=== PATIENT | female | born 1935 | race Caucasian/White ===

== ENCOUNTER 2017-05-11 07:31 | Inpatient (IN) | payer MEDICARE ==
[2017-05-11] VITALS (9 sets, daily range): BP systolic 104–147; BP diastolic 50–64
[~2017-05-11] VITALS: Ht 160 cm; Wt 58.1 kg
[~2017-05-11 07:31] MED LIST: ACETAMIN325 MG PO; AMLODIPINE5 MG OR; AMLODIPINE5 MG PO; AMOXICILLIN250 M1 PO; BONIVA150 MG OR; BONIVA150 MG PO; CEPHALEXIN500 MG PO; CHERATUSSIN OR; CIPRO500 MG OR; GABAPENTIN100 MG PO; HUMULIN 70/30 SC; HYDROCHLOROT25 MG OR; HYDROCHLOROT25 MG PO; LANTUS SC; LEVOTHYROXIN75 MC1 OR; LEVOTHYROXIN75 MC1 PO; LISINOPRIL10 MG PO; LISINOPRIL5 MG OR; LOPRESSOR 550 MG/TAB PO; LOPRESSOR50 MG PO; LORTAB 5/3255 MG PO; METFORMIN1000 MG PO; METFORMIN500 M1 OR; METFORMIN500 MG PO; METOPROL TAR100 M1 OR; MILK OF MAG2 OR; NEURONTIN100 MG PO; PEPCID20 MG PO; PRAVASTATIN20 MG OR; PRAVASTATIN20 MG PO; ROBITUSSIN AC10 ML PO; VITAMIN D2000 UNI2 PO; ZESTRIL OR; ZESTRIL5 MG PO; ZYRTEC10 MG PO; [UNRECOGNIZED DRUG - REMARK] OR
[2017-05-11] MEDS ORDERED: AMLODIPINE5 MG PO (07:55)
[2017-05-11] MEDS ORDERED: LEVOTHYROXIN100 MCG PO (07:56)
[2017-05-11] MEDS ORDERED: METOPROL TAR25 MG PO (07:57)
[2017-05-11] MEDS ORDERED: METFORMIN500 MG PO (07:57)
[2017-05-11] MEDS ORDERED: VITAMIN D2000 UNI2 PO (07:58)
[2017-05-11] MEDS ORDERED: TYLENOL 500MG TAB PO (08:01)
[2017-05-11 08:04] LABS: HEMATOCRIT 35.6 % (37.0-47.0); IMMATURE GRANULOCYTES 1.5 % (0.0-1.0); MEAN CELL VOLUME 89.2 fL CALC (80.0-100.0); MEAN CORPUSCULAR HGB 30.1 pG CALC (26.0-32.0); MEAN CORPUSCULAR HGB CONC 33.7 g/L CALC (32.0-36.0); NEUT# 11.49 thou/uL (2.00-7.15); RED BLOOD COUNT 3.99 mill/uL (4.20-5.60); RED CELL DISTRI WIDTH 14.3 % (11.5-15.5)
[2017-05-11 08:16] LABS: ALBUMIN 4.2 g/dL (3.2-5.0); ALKALINE PHOSPHATASE 68 u/l (38-126); ANION GAP 19 (6-22 (CALC)); BILIRUBIN, TOTAL 0.5 mg/dL (0.0-1.4); BUN 17 mg/dL (8-23); BUN/CREATININE RATIO 21 (12-20 (CALC)); CALCIUM 9.4 mg/dL (8.4-10.2); CARBON DIOXIDE 21 mmol/l (22-30); CHLORIDE 105 mmol/l (95-108); CREATININE 0.8 mg/dL (0.5-1.0); GFR > 60 ML/MIN (>=60 (CALC)); GFR FOR AFR.AMER. > 60 ML/MIN (>=60 (CALC)); GLUCOSE 179 mg/dL (82-115); POTASSIUM 4.5 mmol/l (3.5-5.1); SGOT/AST 21 u/l (9-36); SGPT/ALT 25 u/l (11-66); SODIUM 140 mmol/l (137-146); TOTAL PROTEIN 6.9 g/dL (6.3-8.2)
[2017-05-11 08:20] LABS: INTERNATIONAL NORMALIZED RATIO 0.9 RATIO (0.7-1.3)
[2017-05-11 09:49] LABS: URINE BILIRUBIN - DIPSTICK NEGATIVE (NEGATIVE); URINE BLOOD DIPSTICK NEGATIVE (NEGATIVE); URINE CLARITY CLEAR; URINE COLOR YELLOW; URINE GLUCOSE - DIPSTICK NEGATIVE (NEGATIVE); URINE KETONE TRACE mg/dL (NEGATIVE); URINE LEUK ESTERASE NEGATIVE (NEGATIVE); URINE NITRITE - DIPSTICK NEGATIVE (Negative); URINE PH 5.5 (4.5-8.0); URINE PROTEIN - DIPSTICK TRACE mg/dL (NEG-TRACE); URINE UROBILINOGEN - DIPSTICK 0.2 E.U./dL (0.2)
[2017-05-12 04:05] VITALS: BP 114/56
[2017-05-12 06:41] LABS: HEMOGLOBIN 9.5 g/dl (12.0-16.0); IMMATURE GRANULOCYTES 1.5 % (0.0-1.0); MEAN CELL VOLUME 92.9 fL CALC (80.0-100.0); MEAN CORPUSCULAR HGB 30.4 pG CALC (26.0-32.0); MEAN CORPUSCULAR HGB CONC 32.8 g/L CALC (32.0-36.0); NEUT# 12.99 thou/uL (2.00-7.15); RED BLOOD COUNT 3.12 mill/uL (4.20-5.60); RED CELL DISTRI WIDTH 14.7 % (11.5-15.5)
[2017-05-12 06:57] LABS: ANION GAP 14 (6-22 (CALC)); BUN 16 mg/dL (8-23); BUN/CREATININE RATIO 19 (12-20 (CALC)); CALCIUM 8.3 mg/dL (8.4-10.2); CARBON DIOXIDE 23 mmol/l (22-30); CHLORIDE 108 mmol/l (95-108); CREATININE 0.8 mg/dL (0.5-1.0); GFR > 60 ML/MIN (>=60 (CALC)); GFR FOR AFR.AMER. > 60 ML/MIN (>=60 (CALC)); GLUCOSE 136 mg/dL (82-115); POTASSIUM 4.6 mmol/l (3.5-5.1); SODIUM 140 mmol/l (137-146)
[2017-05-12 07:45] VITALS: BP 121/61
[2017-05-12 08:57] LABS: HEMATOCRIT 27.4 % (37.0-47.0)
[2017-05-12 19:50] VITALS: BP 150/75
[2017-05-13 03:49] VITALS: BP 141/64
[2017-05-13 04:34] LABS: HEMOGLOBIN 9.3 g/dl (12.0-16.0); MEAN CELL VOLUME 98.4 fL CALC (80.0-100.0); MEAN CORPUSCULAR HGB 30.5 pG CALC (26.0-32.0); NEUT# 13.7 thou/uL (2.00-7.15); RED BLOOD COUNT 3.05 mill/uL (4.20-5.60)
[2017-05-13 04:49] LABS: ANION GAP 15 (6-22 (CALC)); BUN 13 mg/dL (8-23); BUN/CREATININE RATIO 19 (12-20 (CALC)); CALCIUM 8.2 mg/dL (8.4-10.2); CARBON DIOXIDE 21 mmol/l (22-30); CHLORIDE 107 mmol/l (95-108); CREATININE 0.7 mg/dL (0.5-1.0); GFR > 60 ML/MIN (>=60 (CALC)); GFR FOR AFR.AMER. > 60 ML/MIN (>=60 (CALC)); GLUCOSE 127 mg/dL (82-115); POTASSIUM 4.3 mmol/l (3.5-5.1); SODIUM 139 mmol/l (137-146)
[2017-05-13 08:55] VITALS: BP 126/57
[2017-05-13 15:31] VITALS: BP 125/50
[2017-05-13 21:39] VITALS: BP 135/72
[2017-05-13 23:56] VITALS: BP 111/56
[2017-05-14 05:10] LABS: HEMATOCRIT 27.2 % (37.0-47.0); HEMOGLOBIN 8.8 g/dl (12.0-16.0); IMMATURE GRANULOCYTES 1.5 % (0.0-1.0); MEAN CELL VOLUME 92.8 fL CALC (80.0-100.0); MEAN CORPUSCULAR HGB CONC 32.4 g/L CALC (32.0-36.0); NEUT# 10.86 thou/uL (2.00-7.15); RED BLOOD COUNT 2.93 mill/uL (4.20-5.60); RED CELL DISTRI WIDTH 14.6 % (11.5-15.5)
[2017-05-14 05:12] VITALS: BP 120/66
[2017-05-14 05:18] LABS: ANION GAP 14 (6-22 (CALC)); BUN 10 mg/dL (8-23); BUN/CREATININE RATIO 16 (12-20 (CALC)); CALCIUM 8.6 mg/dL (8.4-10.2); CARBON DIOXIDE 23 mmol/l (22-30); CHLORIDE 108 mmol/l (95-108); CREATININE 0.6 mg/dL (0.5-1.0); GFR > 60 ML/MIN (>=60 (CALC)); GFR FOR AFR.AMER. > 60 ML/MIN (>=60 (CALC)); GLUCOSE 119 mg/dL (82-115); POTASSIUM 3.9 mmol/l (3.5-5.1); SODIUM 141 mmol/l (137-146)
[2017-05-14 08:06] VITALS: BP 173/73
[2017-05-14] MEDS ORDERED: ASPIRIN EC325 MG PO (12:26)
[2017-05-14] MEDS ORDERED: PERCOCET 10/31 COMBO PO (12:27)
[2017-05-14 13:21] VITALS: BP 116/73
[2017-05-14 15:49] VITALS: BP 128/64
== END 2017-05-14 17:39 | DRG 481 ==
LOC: ENPENDDIS → ED 07:31 → ED-I 09:29 → ED 10:36 → MS2 10:37
PROVIDERS: Emergency Medicine; Internal Medicine; Orthopaedic Surgery; ADMIT Internal Medicine; ATTEND Internal Medicine
PROC: 0QS704Z Reposition Left Upper Femur with Internal Fixation Device, Open Approach (ICD-10-PCS; principal; 2017-05-11)
PROC: 0T9B70Z Drainage of Bladder with Drainage Device, Via Natural or Artificial Opening (ICD-10-PCS; 2017-05-11)
DX: S72.142A Displaced intertrochanteric fracture of left femur, initial encounter for closed fracture (principal); D62 Acute posthemorrhagic anemia; E11.40 Type 2 diabetes mellitus with diabetic neuropathy, unspecified; F03.90 Unspecified dementia, unspecified severity, without behavioral disturbance, psychotic disturbance, mood disturbance, and anxiety; I10 Essential (primary) hypertension; E78.5 Hyperlipidemia, unspecified; E03.9 Hypothyroidism, unspecified; S80.211A Abrasion, right knee, initial encounter; D72.829 Elevated white blood cell count, unspecified; W19.XXXA Unspecified fall, initial encounter; Y92.129 Unspecified place in nursing home as the place of occurrence of the external cause; Z91.81 History of falling; Z79.84 Long term (current) use of oral hypoglycemic drugs